=== PATIENT | male | born 2000 ===

== ENCOUNTER 2020-06-12 08:22 | Emergency (ER) | payer SELFPAY ==
[2020-06-12 08:29] VITALS: BP 124/72
--- NOTE | 2020-06-12 09:25 | XRay Report ---
RIGHT HAND 3 VIEW(S) INDICATION / CLINICAL INFORMATION: swelling COMPARISON: None available. FINDINGS: BONES / JOINT(S): There is an acute angulated fracture of the distal right fifth metacarpal shaft. Fr acture does not involve the MCP joint. No additional fracture is identified. No significant arthritis . SOFT TISSUES: No significant abnormality. ADDITIONAL FINDINGS: None. IMPRESSION: Acute angulated distal right fifth metacarpal shaft fracture. Signer Name: Scotty Sneed MD Signed: 06/12/2020 9:20 AM Workstation Name: [id number]
[2020-06-12] MEDS ORDERED: IBUPROFEN 800 MG TAB PO ONE (10:02)
--- NOTE | 2020-06-12 10:06 | Emergency Department Report ---
ED Upper Extremity Inj HPI - General Chief Complaint: Extremity Injury, Upper Stated Complaint: RT HAND INJURY Time Seen by Provider: 06/12/20 09:57 Source: patient Mode of arrival: Ambulatory Limitations: No Limitations - History of Present Illness Initial Comments: 20-year-old male with no prior medical history states around 2 PM yesterday he punched the wall after he getting angry. He now has pain and swelling to his right hand. He denies any other injuries he is not in any acute distress MD Complaint: Injury to:: right -: Sudden Other Extremity Injury: Hand: Right Other Injuries: none Handedness: right Place: home Improves With: none Worsens With: movement of extremity Context: direct blow Associated Symptoms: denies other symptoms - Related Data Previous Rx's Medication Instructions Recorded Last Taken Type Ibuprofen [Motrin] 800 mg PO Q8HR PRN #21 tablet 06/12/20 Unknown Rx Allergies Allergy/AdvReac Type Severity Reaction Status Date / Time No Known Allergies Allergy Unverified 06/12/20 08:27 ED Review of Systems ROS: Stated complaint: RT HAND INJURY Other details as noted in HPI Comment: All other systems reviewed and negative Constitutional: no symptoms reported Respiratory: no symptoms reported Cardiovascular: denies: chest pain, palpitations, dyspnea on exertion, orthopnea Endocrine: denies: excessive sweating, flushing Gastrointestinal: denies: abdominal pain Musculoskeletal: other (The dorsum at the right hand swelling and pain) Skin: other (Abrasion to the dorsum of the right hand) Neurological: denies: headache Psychiatric: denies: anxiety, auditory hallucinations, visual hallucinations, suicidal thoughts ED Past Medical Hx - Past Medical History Previous Medical History?: No - Surgical History Past Surgical History?: No - Social History Smoking Status: Current Every Day Smoker Substance Use Type: None - Medications Home Medications: Home Medications Medication Instructions Recorded Confirmed Last Taken Type Ibuprofen [Motrin] 800 mg PO Q8HR PRN #21 tablet 06/12/20 Unknown Rx ED Physical Exam - General Limitations: No Limitations General appearance: alert, in no apparent distress - Head Head exam: Present: atraumatic - Eye Eye exam: Present: normal appearance - ENT ENT exam: Present: mucous membranes moist - Neck Neck exam: Present: normal inspection - Respiratory Respiratory exam: Present: normal lung sounds bilaterally. Absent: respiratory distress, wheezes, rales, rhonchi - Cardiovascular Cardiovascular Exam: Present: regular rate, normal heart sounds - Extremities Exam Extremities exam: Present: tenderness, other (Right hand swelling 2+ radial pulse abrasion noted the dorsum at the fifth metacarpal mild erythema) - Neurological Exam Neurological exam: Present: alert, oriented X3 - Psychiatric Psychiatric exam: Present: normal affect - Skin Skin exam: Present: warm, dry, abrasion (Abrasions to the dorsum of the right hand) ED Course Vital Signs 06/12/20 06/12/20 06/12/20 08:27 10:09 11:39 Temperature 98.6 F Pulse Rate 69 Respiratory 18 18 18 Rate Blood Pressure 124/72 O2 Sat by Pulse 96 Oximetry - Reevaluation(s) Reevaluation #1: 06/12/20 Splint applied by nurse I checked personally. Splint appropriately applied fingers are director of financial reporting touch and mobile patient also fitted with a sling ED Medical Decision Making - Radiology Data Radiology results: report reviewed X-RAY RIGHT HAND FINDINGS: BONES / JOINT(S): There is an acute angulated fracture of the distal right fifth metacarpal shaft. Fracture does not involve the MCP joint. No additional fracture is identified. No significant arthritis. SOFT TISSUES: No significant abnormality. ADDITIONAL FINDINGS: None. IMPRESSION: Acute angulated distal right fifth metacarpal shaft fracture. - Medical Decision Making 20-year-old male after punching a wall he sustained a right metacarpal angulated fracture - Differential Diagnosis Right hand contusion right hand boxer fracture , abrasion to the right hand Critical Care Time: No Critical care attestation.: If time is entered above; I have spent that time in minutes in the direct care of this critically ill patient, excluding procedure time. ED Disposition Clinical Impression: Fracture of shaft of fifth metacarpal bone of right hand Qualifiers: Encounter type: initial encounter Fracture type: closed Fracture alignment: displaced Qualified Code(s): S62.326A - Displaced fracture of shaft of fifth metacarpal bone, right hand, initial encounter for closed fracture Disposition: - TO HOME OR SELFCARE Is pt being admited?: No Does the pt Need Aspirin: No Condition: Stable Instructions: Boxer's Fracture, Metacarpal Fracture, Cast or Splint Care, Adult Additional Instructions: Keep splint in place until you follow-up with orthopedic doctor call and schedule your appointment on Sunday. You must see an orthopedic doctor within 1 week take ibuprofen for pain it is okay to apply ice off and on for the next 2 days Prescriptions: Ibuprofen [Motrin] 800 mg PO Q8HR PRN #21 tablet PRN Reason: Pain , Severe (7-10) Referrals: MARGI VALENZUELA MD [Staff Physician] - 3-5 Days MEMO CARBAJAL MD [Staff Physician] - 3-5 Days Forms: Work/School Release Form(ED) Time of Disposition: 10:50
[2020-06-12] MEDS ORDERED: D5W/0.45% NACL/KCL 20 MEQ 20 MEQ/1,000 ML BAG IV ONE (11:22)
[2020-06-12] MEDS ORDERED: amLODIPine 10 MG TAB ONE (12:02)
== END 2020-06-12 11:39 | disposition home or self-care (01) ==
LOC: ED 08:22
DX: S62.326A Displaced fracture of shaft of fifth metacarpal bone, right hand, initial encounter for closed fracture (principal); F17.200 Nicotine dependence, unspecified, uncomplicated; Z79.899 Other long term (current) drug therapy; X58.XXXA Exposure to other specified factors, initial encounter; Y93.89 Activity, other specified; Y92.098 Other place in other non-institutional residence as the place of occurrence of the external cause; Y99.8 Other external cause status